=== PATIENT | female | born 1985 | race Hispanic/Latino ===

== ENCOUNTER 2019-02-23 10:01 | Emergency (ER) | payer BC, MEDICAID, OTHER | END 2019-02-23 12:52 | disposition home or self-care (01) | LOC: EDH 10:01 | DX: M72.2 Plantar fascial fibromatosis (principal); M79.671 Pain in right foot; Z90.89 Acquired absence of other organs; Z98.890 Other specified postprocedural states; Z87.891 Personal history of nicotine dependence ==